=== PATIENT | female | born 1975 | race African-American/Black ===

== ENCOUNTER 2018-08-04 08:48 | Emergency (ER) | payer OTHER ==
[2018-08-04 08:57] VITALS: BP 117/69
[2018-08-04] MEDS ORDERED: CHERRY SYRUP 10 ML UDC PO ONE (09:21)
[2018-08-04] MEDS ORDERED: DEXAMETHASONE 10 MG/ML VIAL PO STA (09:21)
--- NOTE | 2018-08-04 09:24 | ED Physician Documentation ---
PD HPI NECK PAIN - Stated complaint Stated Complaint: BACK/SHOULDER PX - Chief complaint Chief Complaint: Back Pain - History obtained from History obtained from: Patient - History of Present Illness Timing - onset: How many months ago (1) Timing - details: Abrupt onset, Still present Location: Lower, Right Quality: Pain, Spasm, Sharp Associated symptoms: No: Fever, Weakness, Numbness, Incontinent of urine, Unable to urinate, Hematuria, Incontinent of stool Improves with: Rest Worsened by: Movement, Lifting Similar symptoms before: Has not had sx before Recently seen: Not recently seen - Additional information Additional information: Previously well 42-year-old female awoke about 1 month ago with pain in her right neck extending down into her right shoulder. She has had symptoms undulating and they have now become worse and worse and she is having some shooting pain down her right arm. She denies any prior injury to her neck and she denies any prior episodes of pain similar to this. She denies any numbness to her arm she does feel that she has some tingling and weakness. Review of Systems Constitutional: denies: Fever Eyes: denies: Decreased vision Ears: denies: Ear pain Nose: denies: Rhinorrhea / runny nose, Congestion Throat: denies: Sore throat Cardiac: denies: Chest pain / pressure Respiratory: denies: Dyspnea, Cough GI: denies: Abdominal Pain, Nausea, Vomiting : denies: Dysuria PD PAST MEDICAL HISTORY - Past Medical History Cardiovascular: None Respiratory: None Endocrine/Autoimmune: None GI: None : None HEENT: None Psych: None Musculoskeletal: None Derm: None - Past Surgical History /[employer]: section - Present Medications Home Medications: Ambulatory Orders Medication Instructions Recorded Confirmed Fexofenadine [Juli] 0 mg PO DAILY 08/20/13 08/20/13 Loratadine [Claritin] 0 mg PO 08/20/13 08/20/13 Pseudoephedrine [Sudafed] 0 mg PO Q6H 08/20/13 08/20/13 Cyclobenzaprine [Flexeril] 10 mg PO TID PRN #20 tablet 08/04/18 Hydrocodone/Acetaminophen 1 - 2 each PO Q6H PRN #14 tablet 08/04/18 [Hydrocodon-Acetaminophen 5-325] - Allergies Allergies/Adverse Reactions: Allergies Allergy/AdvReac Type Severity Reaction Status Date / Time No Known Drug Allergies Allergy Verified 08/04/18 08:57 - Social History Does the pt smoke?: No Smoking Status: Never smoker PD ED PE NORMAL - Vitals Vital signs reviewed: Yes (normal ) - General General: Alert and oriented X 3, No acute distress, Well developed/nourished - HEENT HEENT: Atraumatic, PERRL, EOMI, Ears normal - Neck Neck: Supple, no meningeal sign, No bony TTP, Other (mild tenderness to the paraspinous muscles on the right side at the C3-7 level. There is tenderness that extends into the right shoulder and especially over the insertion of the spinal accessory. ) - Cardiac Cardiac: RRR, No murmur - Respiratory Respiratory: No respiratory distress, Clear bilaterally - Derm Derm: Normal color, Warm and dry, No rash - Extremities Extremities: No deformity, No edema - Neuro Neuro: Alert and oriented X 3, bander and cellophaner helper machine 2-12 intact, No motor deficit, No sensory deficit, Normal speech Eye Opening: Spontaneous Motor: Obeys Commands Verbal: Oriented GCS Score: 15 - Psych Psych: Normal mood, Other (affect is flat) Results - Vitals Vitals: Vital Signs - 24 hr 08/04/18 08:56 Temperature 36.7 C Heart Rate 85 Respiratory 18 Rate Blood Pressure 117/69 O2 Saturation 99 Oxygen O2 Source Room air PD MEDICAL DECISION MAKING - ED course Complexity details: considered differential, d/w patient ED course: 42-year-old female with a right sided cervical radiculopathy is administered dexamethasone 10 mg orally we will place her on some pain medication muscle relaxant and she will follow-up with her primary as needed. Departure - Departure Disposition: 01 Home, Self Care Clinical Impression: Cervical radiculopathy Condition: Stable Instructions: ED Cervical Radiculopathy Follow-Up: [facility] [Primary Care Provider] - Prescriptions: Cyclobenzaprine [Flexeril] 10 mg PO TID PRN #20 tablet PRN Reason: Spasms Hydrocodone/Acetaminophen [Hydrocodon-Acetaminophen 5-325] 1 - 2 each PO Q6H PRN #14 tablet PRN Reason: pain Forms: Activity restrictions
== END 2018-08-04 09:41 | disposition home or self-care (01) ==
LOC: ED 08:48
DX: M54.12 Radiculopathy, cervical region (principal)
CPT/HCPCS: 99283